=== PATIENT | male | born 1990 | race Caucasian/White ===

== ENCOUNTER 2018-09-30 10:10 | Emergency (ER) | payer BC, OTHER ==
[2018-09-30 10:32] VITALS: BP 157/91; PULSE 61; RESP 16; TEMP 98.1
[2018-09-30] MEDS ORDERED: PROPARACAINE 0.5% OPHTH DROPS 15 ML BTL LEFT EYE STA (10:46)
--- NOTE | 2018-09-30 11:25 | ED ---
Eye Problem HPI - General Chief complaint: Eye Problems Stated complaint: Eye injury-[facility] Time Seen by Provider: 09/30/18 10:43 Source: patient Mode of arrival: ambulatory Limitations: no limitations - History of Present Illness Initial comments: 28 or female past medical history of hypertension presenting today for chief complaint of "stick to left eye". 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 Patient states at first he cannot see much out of his left eye, he states it has gradually gotten better. Patient denies fashion light, floaters,, curtaining, diplopia, nausea, vomiting, eye pain or photophobia. Patient states it is feeling better now. Patient states he initially presented because it was blurry 30 minutes after the incident. Upon full visual acuity 20/25 OS, 20/20 OD. Patient has no protective postures obvious photophobia. Remaining review of systems negative, patient denies any recent fever, chills, shortness of breath, chest pain, back pain, abdominal pain, nausea or vomiting, numbness or tingling, dysuria or hematuria, constipation or diarrhea, headaches or visual changes, or any other complaints. She denies contact lens use or glasses. - Related Data Home Medications Medication Instructions Recorded Confirmed Lisinopril [Zestril] 10 mg PO DAILY 09/30/18 09/30/18 Previous Rx's Medication Instructions Recorded Erythromycin Ophth Oint [Romycin 1 applic LEFT EYE QID 3 Days #1 09/30/18 Ophth Oint] tube Allergies Allergy/AdvReac Type Severity Reaction Status Date / Time Penicillins Allergy Unknown Verified 09/30/18 10:55 Childhood Review of Systems ROS Statement: Those systems with pertinent positive or pertinent negative responses have been documented in the HPI. ROS Other: All systems not noted in ROS Statement are negative. Past Medical History Past Medical History: No Reported History History of Any Multi-Drug Resistant Organisms: None Reported Past Surgical History: Hernia Repair Past Psychological History: No Psychological Hx Reported Smoking Status: Never smoker Past Alcohol Use History: Occasional Past Drug Use History: None Reported General Exam - General Exam Comments Initial Comments: General: The patient is awake and alert, in no distress, and does not appear acutely ill. Eye: +3 mm pupils are equal, round and reactive to light, extra-ocular movements are intact. No nystagmus. There is normal conjunctiva bilaterally. No signs of icterus. Ears, nose, mouth and throat: There are moist mucous membranes and no oral lesions. Normal inspection of the eye under slit lamp examination, forcing uptake negative Paige sign. No pigmentation of. No peaked pupils. No conjunctival injectionor ecchymosis of the lids or surrounding eyes. Patient appears well no signs of acute distress, no photophobia. VA 20/20 OD, 20/25 OS. 20/20 both eyes. Visual stoner intact to confrontation. No disconjugate gaze, APD. He was no evidence of foreign body or corneal abrasion. Neck: The neck is supple, there is no tenderness or JVD. Cardiovascular: There is a regular rate and rhythm. No murmur, rub or gallop is appreciated. Respiratory: Lungs are clear to auscultation, respirations are non-labored, breath sounds are equal. No wheezes, stridor, rales, or rhonchi. Musculoskeletal: Normal ROM, no tenderness. Strength 5/5. Sensation intact. Pulses equal bilaterally 2+. Neurological: A&O x 3. CN II-XII intact, There are no obvious motor or sensory deficits. Coordination appears grossly intact. Speech is normal. Skin: Skin is warm and dry and no rashes or lesions are noted. Psychiatric: Cooperative, appropriate mood & affect, normal judgment. Limitations: no limitations Course Vital Signs 09/30/18 10:26 Temperature 98.1 F Pulse Rate 61 Respiratory 16 Rate Blood Pressure 157/91 O2 Sat by Pulse 100 Oximetry Disposition Clinical Impression: Injury of eye, left, superficial Disposition: HOME SELF-CARE Condition: Good Instructions (If sedation given, give patient instructions): Eye Lubricant (Into the eye) Additional Instructions: Please use medication as discussed. Please follow-up with ophthalmology in the next 2-3 days.. Please return to emergency room if the symptoms increase or worsen or for any other concerns. Is patient prescribed a controlled substance at d/c from ED?: No Referrals: Alanis Coyne MD [Primary Care Provider] - 1-2 days
== END 2018-09-30 11:44 | disposition home or self-care (01) ==
LOC: EC 10:10
DX: S05.92XA Unspecified injury of left eye and orbit, initial encounter (principal); H53.8 Other visual disturbances; I10 Essential (primary) hypertension; Z98.890 Other specified postprocedural states; Z79.899 Other long term (current) drug therapy; Z88.0 Allergy status to penicillin; W22.8XXA Striking against or struck by other objects, initial encounter; Y92.69 Other specified industrial and construction area as the place of occurrence of the external cause; Y99.0 Civilian activity done for income or pay
CPT/HCPCS: 99283